=== PATIENT | male | born 2000 | race Caucasian/White ===

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

== ENCOUNTER 2023-05-01 17:38 | Emergency (ER) | payer OTHER, BC ==
[2023-05-01 18:16] VITALS: BP 146/90; PULSE 84; RESP 16; TEMP 98.8
--- NOTE | 2023-05-01 18:38 | ED ---
Neck Injury/Pain HPI - General Source: patient, family, RN notes reviewed Mode of arrival: ambulatory Limitations: no limitations <Elba Barr - Last Filed: 05/12/23 11:28> - General Source: RN notes reviewed, old records reviewed Mode of arrival: ambulatory Limitations: no limitations - History of Present Illness MD Complaint: neck pain, upper back pain -: days(s) Place: work Radiation: right lateral, left lateral Severity: moderate Severity scale (1-10): 3 Quality: sharp Consistency: intermittent Improves With: none Worsens With: none Associated Symptoms: none <Prabhjot Malin - Last Filed: 05/19/23 16:00> - General Chief Complaint: Neck Pain/Injury Stated Complaint: Back pain Time Seen by Provider: 05/01/23 18:37 - History of Present Illness Initial Comments: She is a 23-year-old male presented ER with chief complaint of back pain. Patient states she lifted heavy material today and now is endorsing pain. Denies any bowel or bladder incontinence, fevers, history of IV drug use, saddle paresthesias. (Elba Barr) This is a 23-year-old male to ER for evaluation of back pain with no specific traumatic injury. Symptoms began while lifting heavy material heavier than normal at work today. No history of fevers. No loss of bowel or bladder. Pain is mid upper back (Prabhjot Malin) - Related Data Home Medications Medication Instructions Recorded Confirmed Budesonide/Formoterol Fumarate 2 puff INHALATION RT-BID 05/22/16 09/30/19 [Symbicort 80-4.5 Mcg Inhaler] Albuterol Nebulized [Ventolin 2.5 mg INHALATION TID PRN 09/30/19 09/30/19 Nebulized] EPINEPHrine (Auto Inject) [Epipen] 0.3 mg IM ONCE PRN 09/30/19 09/30/19 Previous Rx's Medication Instructions Recorded Sulfamethox-Tmp 800-160Mg [Bactrim 1 tab PO Q12HR #20 tab 09/30/19 DS 800-160 mg] Naproxen [Naprosyn] 500 mg PO BID #60 tablet 05/01/23 Allergies Allergy/AdvReac Type Severity Reaction Status Date / Time egg Allergy Unknown Verified 05/01/23 17:59 peanut Allergy Unknown Verified 05/01/23 17:59 tree nut Allergy Unknown Verified 05/01/23 17:59 beans Allergy Unknown Uncoded 05/01/23 17:59 green peas Allergy Unknown Uncoded 05/01/23 17:59 nuts Allergy Unknown Uncoded 05/01/23 17:59 Review of Systems ROS Other: All systems not noted in ROS Statement are negative. <Elba Barr - Last Filed: 05/12/23 11:28> ROS Other: All systems not noted in ROS Statement are negative. <Prabhjot Malin - Last Filed: 05/19/23 16:00> ROS Statement: Those systems with pertinent positive or pertinent negative responses have been documented in the HPI. Past Medical History Past Medical History: Asthma History of Any Multi-Drug Resistant Organisms: None Reported Past Surgical History: Hernia Repair Additional Past Surgical History / Comment(s): age 18 months, and hydrocele surgery 18 months and 30 months Past Psychological History: Anxiety Smoking Status: Never smoker Past Alcohol Use History: None Reported Past Drug Use History: None Reported <Ebla Barr - Last Filed: 05/12/23 11:28> General Exam Limitations: no limitations <Elba Barr - Last Filed: 05/12/23 11:28> - General Exam Comments Initial Comments: Visual Physical Exam Vital signs reviewed General: Well-appearing, nontoxic, no acute distress. Head: Normocephalic, atraumatic Eyes: PERRLA, EOMI ENT: Airway patent Chest: Nonlabored breathing Skin: No visual rash, normal skin tone Neuro: Alert and oriented 3 Musculoskeletal: No gross abnormalities (Elba Barr) Course <Prabhjot Malin - Last Filed: 05/19/23 16:00> Vital Signs 05/01/23 17:55 Temperature 98.8 F Pulse Rate 84 Respiratory 16 Rate Blood Pressure 146/90 O2 Sat by Pulse 99 Oximetry - Reevaluation(s) Reevaluation #1: Records reviewed (Prabhjot Malin) Reevaluation #2: Patient symptoms improved (Prabhjot Malin) Reevaluation #3: Patient informed of results questions answered (Prabhjot Malin) Reevaluation #4: Was pt. sent in by a medical professional or institution ([facility], MANAGED CARE NURSE, urgent care, hospital, or halfway...) When possible be specific @ -no Did you speak to anyone other than the patient for history (EMS, parent, family, police, friend...)? What history was obtained from this source @ -no Did you review nursing and triage notes (agree or disagree)? Why? @ -agree Are old charts reviewed (outside hosp., previous admission, EMS record, old EKG, old radiological studies, urgent care reports/EKG's, halfway records)? Report findings @ -yes Differential Diagnosis (chest pain, altered mental status, abdominal pain women, abdominal pain men, vaginal bleeding, weakness, fever, dyspnea, syncope, headache, dizziness, GI bleed, back pain, seizure, CVA, palpatations, mental health, musculoskeletal)? @ -prior EKG interpreted by me (3pts min.). @ -yes X-rays interpreted by me (1pt min.). @ -yes negative for acute disease CT interpreted by me (1pt min.). @ -no U/S interpreted by me (1pt. min.). @ -no What testing was considered but not performed or refused? (CT, X-rays, U/S, labs)? Why? @ -none What meds were considered but not given or refused? Why? @ -none Did you discuss the management of the patient with other professionals (professionals i.e. [facility], MANAGED CARE NURSE, lab, RT, psych nurse, director social, skin diver, teacher, project officer, supportive employment case manager)? Give summary @ -no Was smoking cessation discussed for >3mins.? @ -no Was critical care preformed (if so, how long)? @ -no Were there social determinants of health that impacted care today? How? (Homelessness, low income, unemployed, alcoholism, drug addiction, transportation, low edu. Level, literacy, decrease access to med. care, longterm, rehab)? @ -none Was there de-escalation of care discussed even if they declined (Discuss DNR or withdrawal of care, Hospice)? DNR status @ -no What co-morbidities impacted this encounter? (DM, HTN, Smoking, COPD, CAD, Cancer, CVA, ARF, Chemo, Hep., AIDS, mental health diagnosis, sleep apnea, morbid obesity)? @ -none Was patient admitted / discharged? Hospital course, mention meds given and route, prescriptions, significant lab abnormalities, going to OR and other pertinent info. @ -23 male with nonspecific nontraumatic back pain. Patient has adequate pain control with no neurological deficit here in the ER and can be discharged home Undiagnosed new problem with uncertain prognosis? @ -no Drug Therapy requiring intensive monitoring for toxicity (Heparin, Nitro, Insulin, Cardizem)? @ -no Were any procedures done? @ -no Diagnosis/symptom? @ -Back pain, cervical strain Acute, or Chronic, or Acute on Chronic? @ -Acute Uncomplicated (without systemic symptoms) or Complicated (systemic symptoms)? @ -Complicated Side effects of treatment? @ -no Exacerbation, Progression, or Severe Exacerbation? @ -exacerbation Poses a threat to life or bodily function? How? (Chest pain, USA, SC, pneumonia, PE, COPD, DKA, ARF, appy, cholecystitis, CVA, Diverticulitis, Homicidal, Suicidal, threat to staff... and all critical care pts) @ -yes (Prabhjot Malin) Reevaluation #5: Differential Back Pain: Strain, zoster, cauda equina syndrome, epidural abscess, vertebral osteomyelitis, discitis, fracture, subluxation, disc herniation, DJD, spinal stenosis, dissection, AAA, pancreatitis, peptic ulcer disease, pyelonephritis, kidney stone, this is not meant to be an all-inclusive list. (Prabhjot Malin) Medical Decision Making <Elba Barr - Last Filed: 05/12/23 11:28> - Radiology Data Radiology results: report reviewed (X-ray thoracic and lumbar spine are negative for traumatic injury), image reviewed <Prabhjot Malin - Last Filed: 05/19/23 16:00> - Medical Decision Making I performed the quick note portion of the exam. Electronically signed by Elba Barr PA-C (Elba Barr) 23 male to ER for evaluation of neck pain back pain. Patient has adequate pain control currently is without current distress and can be discharged home (Prabhjot Malin) Disposition <Elba Barr - Last Filed: 05/12/23 11:28> Is patient prescribed a controlled substance at d/c from ED?: No Time of Disposition: 20:00 <Prabhjot Malin - Last Filed: 05/19/23 16:00> Clinical Impression: Strain of neck muscle, Neck pain, Back pain Disposition: HOME SELF-CARE Instructions (If sedation given, give patient instructions): Cervical Strain (ED) Prescriptions: Naproxen [Naprosyn] 500 mg PO BID #60 tablet Referrals: Jonathon Stephenson DO [Primary Care Provider] - 1-2 days
--- NOTE | 2023-05-01 18:57 | XR ---
EXAMINATION TYPE: XR lumbar spine 2 or 3V DATE OF EXAM: 05/01/2023 6:17 PM CLINICAL INDICATION:Male, 23 years old with history of pain; [facility] COMPARISON: None TECHNIQUE: XR lumbar spine 2 or 3V - Frontal, lateral and coned in L5-S1 lateral views of the spine. FINDINGS: No evidence of any acute osseous pathology. No evidence of loss of vertebral body height i s seen. There is normal alignment of the lumbar vertebral bodies. Mild scattered disc space narrowing . Multilevel marginal osteophyte formation throughout the visualized spine. There is facet joint arth ropathy throughout the spine. Scattered at least mild neural foraminal stenosis. IMPRESSION: 1. No acute fracture. 2. Mild multilevel disc degeneration.
--- NOTE | 2023-05-01 18:57 | XR ---
EXAMINATION TYPE: XR thoracic spine complete DATE OF EXAM: 05/01/2023 6:17 PM CLINICAL INDICATION:Male, 23 years old with history of pain; COMPARISON: None TECHNIQUE: XR thoracic spine complete views of the spine in Frontal and lateral projections. FINDINGS: No evidence of acute fracture. There is scattered multilevel disk space narrowing without loss of ve rtebral body height. There is normal alignment of the thoracic vertebral bodies. Scattered osteophyte formation along the anterior and lateral aspects of the vertebral bodies. Neural foramen are patent given limitations of this exam. Spinal canal appears patent. IMPRESSION: No acute osseous pathology.
== END 2023-05-01 20:30 | disposition home or self-care (01) ==
LOC: EC 17:38
DX: S16.1XXA Strain of muscle, fascia and tendon at neck level, initial encounter (principal); S29.9XXA Unspecified injury of thorax, initial encounter; Z91.010 Allergy to peanuts; Z91.012 Allergy to eggs; Z91.018 Allergy to other foods; X50.0XXA Overexertion from strenuous movement or load, initial encounter; Y99.0 Civilian activity done for income or pay
CPT/HCPCS: 72072; 72100; 99283